=== PATIENT | male | born 1975 | race American Indian/Alaskan Native ===

== ENCOUNTER 2017-02-19 01:06 | Emergency (ER) | payer SELFPAY | END 2017-02-19 01:42 | disposition left against medical advice (07) | LOC: ED 01:06 | DX: R51 Headache (principal); Z53.21 Procedure and treatment not carried out due to patient leaving prior to being seen by health care provider ==

== ENCOUNTER 2017-02-20 21:41 | Emergency (ER) | payer SELFPAY ==
[2017-02-20 22:59] VITALS: BP 141/93
== END 2017-02-21 00:30 | disposition left against medical advice (07) ==
LOC: ED 21:41
DX: M79.671 Pain in right foot (principal); M79.672 Pain in left foot; M79.641 Pain in right hand; M79.642 Pain in left hand; Z53.21 Procedure and treatment not carried out due to patient leaving prior to being seen by health care provider

== ENCOUNTER 2017-02-22 14:32 | Emergency (ER) | payer SELFPAY ==
[2017-02-22] MEDS ORDERED: QUELICIN ONE (14:35)
[2017-02-22] MEDS ORDERED: AMIDATE IV ONE (14:35)
[2017-02-22] MEDS ORDERED: NACL 0.9% 1000 ML 1,000 ML IV ONE (14:41)
[2017-02-22 14:53] LABS: Basophils % (Auto) 0.3 % (0.0-1.8); Eosinophils % (Auto) 1.2 % (0.0-4.3); Hematocrit 42.4 % (35.5-45.6); Hemoglobin 13.9 gm/dl (11.8-15.2); Mean Corpuscular HGB Conc 33 % (32-34); Mean Corpuscular Hemoglobin 29 pg (28-32); Mean Corpuscular Volume 89 fl (84-94); Platelet Count 214 K/mm3 (140-440); Red Blood Count 4.77 M/mm3 (3.65-5.03); White Blood Count 13.1 K/mm3 (4.5-11.0)
[2017-02-22] MEDS ORDERED: ARTIFICIAL TEARS OPHTH OINT OU PRN (14:53)
[2017-02-22] MEDS ORDERED: VASELINE LIP THERAPY TP PRN (14:53)
[2017-02-22 14:57] LABS: INR 1.17 (0.87-1.13)
[2017-02-22 14:57] LABS: Urine Drugs of Abuse Note Disclamer
[2017-02-22] MEDS ORDERED: NACL 0.9% 500 ML IV SCH (15:00)
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
[2017-02-22 15:07] LABS: Bilirubin,Urine NEG (Negative); Blood,Urine MOD (Negative); Ketones,Urine NEG (Negative); Leukocyte Esterase,Urine NEG (Negative); Mucus,Urine FEW /HPF; Nitrite,Urine NEG (Negative); Urobilinogen,Urine < 2.0 mg/dL (<2.0)
[2017-02-22 15:17] LABS: Alanine Aminotransferase 16 units/L (7-56); Albumin 3.5 g/dL (3.9-5); Albumin/Globulin Ratio 1.1 %; Alkaline Phosphatase 51 units/L (35-129); Anion Gap 19 mmol/L; BUN/Creatinine Ratio 12.22; Blood Urea Nitrogen 11 mg/dL (9-20); Calcium 8.7 mg/dL (8.4-10.2); Carbon Dioxide 22 mmol/L (22-30); Chloride 103.1 mmol/L (98-107); Creatine Kinase 712 units/L (55-170); Glucose 138 mg/dL (75-100); Lactate Dehydrogenase 297 units/L (91-180); Potassium 3.1 mmol/L (3.6-5.0); Sodium 141 mmol/L (137-145); Total Protein 6.8 g/dL (6.3-8.2)
[2017-02-22 15:32] VITALS: BP 142/99
--- NOTE | 2017-02-22 15:59 | XRay Report ---
AP CHEST: HISTORY: chest pain An endotracheal tube terminates 2 cm superior to the wilmer. AP view of the chest demonstrates a normal mediastinal and cardiac contour with clear lungs and normal bony and soft tissue structures. IMPRESSION: Unremarkable AP chest.
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
== END 2017-02-22 15:45 | disposition other institution (70) ==
LOC: ED 14:32
DX: S09.90XA Unspecified injury of head, initial encounter (principal); R40.2431 Glasgow coma scale score 3-8, in the field [EMT or ambulance]; F31.9 Bipolar disorder, unspecified; J18.9 Pneumonia, unspecified organism; Z91.013 Allergy to seafood; Y08.89XA Assault by other specified means, initial encounter; Y93.89 Activity, other specified; Y99.9 Unspecified external cause status; Y92.89 Other specified places as the place of occurrence of the external cause
CPT/HCPCS: 31500; 36415; 51702; 70150; 71010; 80053; 80307; 81001; 82550; 82962; 83615; 84484; 85025; 85610; 85730; 86850; 86900; 86901; 99291; G0480; J0330; 80320; 94002